=== PATIENT | female | born 1965 | race Caucasian/White ===

== ENCOUNTER 2018-07-22 13:22 | Emergency (ER) | payer MEDICAID ==
[2018-07-22] MEDS: METHOCARBAMOL 750 MG TAB PO (14:02)
[2018-07-22] MEDS: KETOROLAC 30 MG INJ IM (14:02)
== END 2018-07-22 17:04 | disposition home or self-care (01) ==
LOC: FTE 13:22
DX: M54.2 Cervicalgia (principal); M54.5 Low back pain
CPT/HCPCS: 72040; 72100; 81025; 96372; 99284-25

== ENCOUNTER 2018-07-27 16:33 | Emergency (ER) | payer SELFPAY, MEDICAID | END 2018-07-27 18:58 | disposition left against medical advice (07) | LOC: FTE 16:33 | DX: Z53.21 Procedure and treatment not carried out due to patient leaving prior to being seen by health care provider (principal) ==